=== PATIENT | female | born 1995 | race Two or more races ===

== ENCOUNTER 2017-02-04 06:45 | Emergency (ER) | payer MEDICAID ==
[2017-02-04 06:51] VITALS: TEMP 98.2
--- NOTE | 2017-02-04 07:30 | EDPHY ---
H & P Time Seen by Provider: 02/04/17 06:59 HPI/ROS: This patient describes a one-week history of difficulty swallowing. She explains that she awakens with a choking sensation and has a feeling of upper pharyngeal region swelling but when queried further about this it seems that she is referring to her upper esophagus. She describes a feeling that she tries to swallow and the muscle. Working from an . She has associated anxiety and she has had difficulty sleeping for the past 3 nights. She admits that she typically has some insomnia but it has been worsened due to her current symptoms. She did go to a [place] [facility] 5 days prior to arrival where they were concerned about potential Neurontin allergy. She had been started on Neurontin as a mood stabilizer 1 month ago so the stop the Neurontin and give her Benadryl. She experiences no relief from a intervention. She then saw her primary care physician the following day with a prescribed albuterol inhaler which patient also received no relief from. She describes feeling is like cotton ball. ROS: No fevers. No other constitutional symptoms. HEENT: No nasal congestion. No dysphonia. No sore throat at baseline. She does have some slight discomfort in her upper esophageal/lower pharyngeal region with swallowing at times. Pulmonary: No cough. Cardiovascular: No chest pain or other complaints. GI: She reports significant GERD symptoms described as acid feeling in her esophagus all last month and up to about a week ago. She has not noticed that is much over this past week. No belly pain no other complaints. : No complaints Integumentary: No skin rash 10 point ROS is otherwise negative. Past Medical/Surgical History: Psychiatric history Social History: She denies any recreational drug use. Occasional alcohol. She is accompanied today by her boyfriend. Her boyfriend also provide some history. Smoking Status: Heavy smoker Physical Exam: Physical Exam Vital signs are normal. General: No acute distress HEENT: Nose: Clear bilaterally. No sinus tenderness to percussion. Ears: External canals and tympanic membranes are clear with no erythema or abnormal findings bilaterally. Oropharynx: No erythema or exudates. No dysphonia. No drooling or stridor. Eyes: Pupils equal and react to light. Extraocular motions are intact. Neck: Supple with no meningismus. No lymphadenopathy Lungs: Clear to auscultation bilaterally with no rales, rhonchi or wheeze. No respiratory distress. Cardiac: Regular rate and rhythm with no murmur gallop or rub Skin: No rash or pallor. Neuro: Alert with no focal deficits noted. Initial differential diagnosis: GERD with esophagitis and mild dysphagia attributable to that, anxiety, esophageal stricture, allergic esophagitis, insomnia,lower pharyngeal lesion Constitutional: Initial Vital Signs Temperature (C) 36.8 C 02/04/17 06:48 Heart Rate 70 02/04/17 06:48 Respiratory Rate 16 02/04/17 06:48 Blood Pressure 132/89 H 02/04/17 06:48 O2 Sat (%) 97 02/04/17 06:48 O2 Delivery Mode Room Air Allergies/Adverse Reactions: latex Allergy (Intermediate, Verified 02/04/17 06:47) Itching Penicillins Allergy (Unknown, Verified 02/04/17 06:47) Unknown Home Medications: Medication Instructions Recorded Albuterol 02/04/17 Fluticasone Hfa 220 Mcg [Flovent 2 puffs IH DAILY #1 mdi 02/04/17 220 MCG Hfa MDI (*)] Pantoprazole Sodium [Protonix 40mg 40 mg PO DAILY #30 tab 02/04/17 (*)] Wellbutrin 100mg (*) 02/04/17 Zaleplon [Sonata] 10 mg PO HS PRN #12 capsule 02/04/17 MDM/Departure - [facility] ED Course/Re-evaluation: I discussed insomnia, GERD and dysphagia with this patient and her boyfriend. Will start her on a proton pump inhibitor and sonata as a sleep aid. At the moment there is no evidence of upper airway obstruction, evidence of toxicity or other concerning findings. She will follow up with ENT if she has any ongoing symptoms for further evaluation. - Depart Disposition: Home, Routine, Self-Care Clinical Impression: Dysphagia Qualifiers: Dysphagia type: unspecified Qualified Code(s): R13.10 - Dysphagia, unspecified Insomnia Qualifiers: Insomnia type: unspecified Qualified Code(s): G47.00 - Insomnia, unspecified GERD (gastroesophageal reflux disease) Qualifiers: Esophagitis presence: esophagitis presence not specified Qualified Code(s): K21.9 - Gastro-esophageal reflux disease without esophagitis Condition: Good Instructions: Gastroesophageal Reflux Disease (ED), Insomnia (ED), Dysphagia ( ED) Additional Instructions: Diagnoses: Dysphagia (discomfort with swallowing) 2. GERD 3. Insomnia Plan: Daily exercise for 20-40 minutes Daily relaxation Garden diet before bedtime Prilosec or Protonix 40 mg a day Flovent steroid inhaler Sonata for sleep if needed Follow up with ENT physician listed below for further evaluation if her symptoms are not resolving over the next 5-7 days with treatment plan Prescriptions: Fluticasone Hfa 220 Mcg [Flovent 220 MCG Hfa MDI (*)] 2 puffs IH DAILY #1 mdi Pantoprazole Sodium [Protonix 40mg (*)] 40 mg PO DAILY #30 tab Zaleplon [Sonata] 10 mg PO HS PRN #12 capsule PRN Reason: insomnia Referrals: Nani Vital MD [Medical Doctor] - As per Instructions
[2017-02-04 07:40] VITALS: BP 135/67; PULSE 75; RESP 18; O2SAT 95
== END 2017-02-04 07:41 | disposition home or self-care (01) ==
LOC: CED 06:45
DX: R13.10 Dysphagia, unspecified (principal); K21.9 Gastro-esophageal reflux disease without esophagitis; G47.00 Insomnia, unspecified; F17.200 Nicotine dependence, unspecified, uncomplicated; Z91.040 Latex allergy status

== ENCOUNTER 2017-09-17 17:57 | Emergency (ER) | payer MEDICAID ==
[2017-09-17 18:06] VITALS: RESP 16; TEMP 98.6
--- NOTE | 2017-09-17 18:08 | EDPHY ---
H & P Time Seen by Provider: 09/17/17 18:07 HPI/ROS: Chief complaint. Vomiting/anxiety HPI. 21-year-old female presents emergency department with vomiting and anxiety. This is been present for about 1 week. She has had similar symptoms previously. She was seen by her PCP who prescribed Zofran. She is out of Ativan. She says she is really not nauseated but because of anxiety it makes her vomit when she tries to eat. She has had a hard time keeping any food and fluids down. She has no abdominal pain. She has sense of tension in her chest and sense that she has a hard time breathing especially at night when she is lying down. However no cough. ROS Constitutional. Anxiety Eyes. no problems with vision ENT. no sore throat, no nasal drainage Cardiovascular. no chest pain Respiratory. no shortness of breath, no cough Abdominal. Vomiting . no problems urinating MS. no calf pain/swelling, no neck/back pain, no joint pain Skin. no rash Lymph. no swollen glands Neuro. no headache, no dizziness, no difficulty walking or with speech Past Medical/Surgical History: Past medical history , pyelonephritis, depression, bipolar illness, anxiety Social History: Single, daily smoker, no alcohol Smoking Status: Heavy smoker Physical Exam: General Appearance: Alert pleasant well-developed female mild distress vital signs are stable Eyes: Pupils equal and round no pallor or injection. ENT, Mouth: Mucous membranes are moist. Respiratory: There are no retractions, lungs are clear to auscultation. Cardiovascular: Regular rate and rhythm. Gastrointestinal: Abdomen is soft and nontender, no masses, bowel sounds normal. Neurological: Awake and alert, sensory and motor exams grossly normal. Skin: Warm and dry, no rashes. Musculoskeletal: Neck is supple nontender. Extremities symmetrical, full range of motion. Psychiatric: Patient is oriented X 3, there is no agitation. Constitutional: Initial Vital Signs Temperature (C) 37 C 09/17/17 18:00 Heart Rate 96 09/17/17 18:00 Respiratory Rate 16 09/17/17 18:00 Blood Pressure 118/79 09/17/17 18:00 O2 Sat (%) 98 09/17/17 18:00 O2 Delivery Mode Room Air Allergies/Adverse Reactions: latex Allergy (Intermediate, Verified 09/17/17 18:01) Itching Penicillins Allergy (Unknown, Verified 09/17/17 18:01) Unknown Home Medications: Medication Instructions Recorded Wellbutrin 100mg (*) 02/04/17 ARIPiprazole [Abilify 5 mg (*)] 5 mg PO DAILY 09/17/17 LORazepam [Ativan] 1 mg PO Q6-8PRN PRN #7 tab 09/17/17 Ondansetron Odt [Zofran Odt] 4 mg PO Q4PRN PRN #4 tab 09/17/17 Medical Decision Making Procedures: Patient is given Ativan and Zofran. She declines IV ED Course/Re-evaluation: Re-evaluation 7:00 p.m. patient feels much better. She is drinking fluids. She is now hungry and wants to go eat. The patient and I discussed treatment plan including criteria for return importance of follow-up further evaluation. She expresses understanding and agreement Differential Diagnosis: Sounds like anxiety is precipitating the vomiting. There is no significant evidence for dehydration or electrolyte abnormality. She has been successfully treated with Ativan and Zofran. She has more Zofran at home. She will be given take-home Ativan and follow up with her regular physician for further Ativan - Data Points Medications Given: Discontinued Medications Lorazepam (Ativan) 1 mg PO EDNOW ONE Stop: 09/17/17 18:18 Last Admin: 09/17/17 18:29 Dose: 1 mg Ondansetron HCl (Zofran Odt) 4 mg PO EDNOW ONE Stop: 09/17/17 18:18 Last Admin: 09/17/17 18:29 Dose: 4 mg Departure - Departure Disposition: Home, Routine, Self-Care Clinical Impression: Vomiting Qualifiers: Vomiting type: unspecified Vomiting Intractability: non-intractable Nausea presence: without nausea Qualified Code(s): R11.11 - Vomiting without nausea Condition: Good Instructions: Acute Nausea and Vomiting (ED), Anxiety (ED) Additional Instructions: Ativan as needed for anxiety. Zofran as needed for nausea vomiting. Return for worsening symptoms. Follow up with your regular physician at [facility] for further Ativan. Referrals: [facility],. [Clinic] - As per Instructions Prescriptions: LORazepam [Ativan] 1 mg PO Q6-8PRN PRN #7 tab PRN Reason: Anxiety Ondansetron Odt [Zofran Odt] 4 mg PO Q4PRN PRN #4 tab PRN Reason: Nausea/Vomiting, Use 1st
[2017-09-17] MEDS ORDERED: ONDANSETRON DISINTEGRATING 4 MG TAB PO ONE (18:17)
[2017-09-17] MEDS ORDERED: LORazepam 1 MG TAB PO ONE (18:17)
[2017-09-17] MEDS ORDERED: LORAZEPAM 1 MG PREPACK#4 BTL TAKEHOME ONE (19:01)
[2017-09-17] MEDS ORDERED: ONDANSETRON 4MG PREPACK#2 BTL TAKEHOME ONE (19:08)
[2017-09-17 19:15] VITALS: BP 96/69; PULSE 97; O2SAT 96
== END 2017-09-17 19:15 | disposition home or self-care (01) ==
DX: R11.11 Vomiting without nausea (principal); F17.200 Nicotine dependence, unspecified, uncomplicated; Z91.040 Latex allergy status

== ENCOUNTER 2017-10-28 17:12 | Emergency (ER) | payer MEDICAID ==
--- NOTE | 2017-10-28 17:26 | EDPHY ---
H & P Time Seen by Provider: 10/28/17 17:15 HPI/ROS: 21-year-old female with a history of bipolar disorder requesting bridge for her Seroquel and Abilify until she sees her psychiatrist likely tomorrow. No other complaints, just here for bridge of medication Review of systems As per HPI General no fever no chills no weakness HEENT no eye pain no eye discharge. No eye redness, no sore throat Respiratory no cough, no shortness of breath Cardiac no chest pain, no peripheral edema GI no abdominal pain, no diarrhea, no constipation, no nausea, no vomiting no flank pain, no hematuria, no dysuria Musculoskeletal no myalgias, no joint pain Heme no easy bruising, no easy bleeding Endo no polyuria, no polydipsia Skin no rashes, no pruritus Neuro no syncope, no dizziness, no headaches Psych is no suicidal ideation, no homicidal ideation Social History: Unknown drug and alcohol use. Smokes daily Smoking Status: Heavy smoker Physical Exam: Alert and oriented in no acute distress nontoxic appearance, afebrile Atraumatic normocephalic Neck no JVD Lungs clear to auscultation, no respiratory distress Heart regular rate and rhythm Extremities no cyanosis clubbing edema Constitutional: Initial Vital Signs Temperature (C) 36.9 C 10/28/17 17:25 Heart Rate 104 H 10/28/17 17:25 Respiratory Rate 20 10/28/17 17:25 Blood Pressure 116/81 H 10/28/17 17:25 O2 Sat (%) 95 10/28/17 17:25 O2 Delivery Mode Room Air Allergies/Adverse Reactions: latex Allergy (Intermediate, Verified 10/28/17 17:24) Itching Penicillins Allergy (Unknown, Verified 10/28/17 17:24) Unknown Home Medications: Medication Instructions Recorded Wellbutrin 100mg (*) 02/04/17 ARIPiprazole [Abilify 5 mg (*)] 5 mg PO DAILY 09/17/17 ARIPiprazole [Abilify 5 mg (*)] 5 mg PO DAILY #3 tab 10/28/17 QUEtiapine FUMARATE [Seroquel 50 50 mg PO DAILY #3 tab 10/28/17 mg (*)] Seroquel 10/28/17 Medical Decision Making ED Course/Re-evaluation: Patient here for a medication bridge Given Seroquel 50 mg at bedtime, prescription written for dispense 3. Abilify 5 mg daily, prescription written to dispense 3 Departure - Departure Disposition: Home, Routine, Self-Care Clinical Impression: Medication refill Condition: Good Referrals: NOELLE SALVADOR,. [Primary Care Provider] - As per Instructions Prescriptions: ARIPiprazole [Abilify 5 mg (*)] 5 mg PO DAILY #3 tab QUEtiapine FUMARATE [Seroquel 50 mg (*)] 50 mg PO DAILY #3 tab
[2017-10-28 17:30] VITALS: BP 116/81; PULSE 104; RESP 20; TEMP 98.4; O2SAT 95
== END 2017-10-28 17:30 | disposition home or self-care (01) ==
LOC: CED 17:12
DX: Z76.0 Encounter for issue of repeat prescription (principal); F17.200 Nicotine dependence, unspecified, uncomplicated; Z91.040 Latex allergy status

== ENCOUNTER 2018-01-09 12:15 | Emergency (ER) | payer MEDICAID ==
--- NOTE | 2018-01-09 12:30 | EDPHY ---
H & P Time Seen by Provider: 01/09/18 12:18 HPI/ROS: CHIEF COMPLAINT: Dysuria HISTORY OF PRESENT ILLNESS: 22-year-old female presents with a one-week history of dysuria. Associated with urinary frequency and mild crampy low back pain. No fever, vomiting or flank pain. No vaginal discharge. REVIEW OF SYSTEMS: Complete 10 point ROS negative except at noted in the HPI Past Medical/Surgical History: Depression Social History: single, employed Smoking Status: Heavy smoker Physical Exam: General Appearance: Alert, pleasant Eyes: Pupils equal and round, no conjunctival pallor ENT, Mouth: Mucous membranes moist Neck: Normal inspection Respiratory: Normal respiratory rate Cardiovascular: Regular rate and rhythm Gastrointestinal: Abdomen is soft and nontender Neurological: A&O, nonfocal, normal gait Skin: Warm and dry Extremities: Normal inspection Psychiatric: Mood and affect normal Constitutional: Initial Vital Signs Temperature (C) 36.6 C 01/09/18 12:22 Heart Rate 78 01/09/18 12:22 Respiratory Rate 18 01/09/18 12:22 Blood Pressure 122/62 H 01/09/18 12:22 O2 Sat (%) 96 01/09/18 12:22 O2 Delivery Mode Room Air Allergies/Adverse Reactions: latex Allergy (Intermediate, Verified 10/28/17 17:24) Itching Penicillins Allergy (Unknown, Verified 10/28/17 17:24) Unknown Home Medications: Medication Instructions Recorded Wellbutrin 100mg (*) 02/04/17 ARIPiprazole [Abilify 5 mg (*)] 5 mg PO DAILY 09/17/17 ARIPiprazole [Abilify 5 mg (*)] 5 mg PO DAILY #3 tab 10/28/17 QUEtiapine FUMARATE [Seroquel 50 50 mg PO DAILY #3 tab 10/28/17 mg (*)] Seroquel 10/28/17 Cephalexin [Keflex (*)] 500 mg PO BID #10 cap 01/09/18 Medical Decision Making ED Course/Re-evaluation: UA results discussed with the patient. Not clearly indicative of a urinary tract infection. However her symptoms are typical of prior urinary tract infections. A urine culture was sent and I will treat her with Keflex, pending the urine culture. I will also send a urine for GC/chlamydia. - Data Points Laboratory Results: 01/09/18 01/09/18 13:20 12:30 Urine Color YELLOW Urine Appearance CLEAR Urine pH 6.0 (5.0-7.5) Ur Specific [place] 1.010 (1.002-1.030) Urine Protein NEGATIVE (NEGATIVE) Urine Ketones NEGATIVE (NEGATIVE) Urine Blood TRACE H (NEGATIVE) Urine Nitrate NEGATIVE (NEGATIVE) Urine Bilirubin NEGATIVE (NEGATIVE) Urine Urobilinogen 0.2 EU EU (0.2-1.0) Ur Leukocyte Esterase NEGATIVE (NEGATIVE) Urine RBC 3-5 /hpf H /hpf (0-3) Urine WBC 0-1 /hpf /hpf (0-3) Ur Epithelial Cells 1+ /lpf /lpf (NONE-1+) Urine Bacteria 3+ /hpf H /hpf (NONE SEEN) Urine Glucose NEGATIVE (NEGATIVE) C.trachomatis RNA (TMA) Pending N.gonorrhoeae RNA (TMA) Pending Medications Given: Discontinued Medications Cephalexin HCl (Keflex) 500 mg PO EDNOW ONE PRN Reason: Protocol Stop: 01/09/18 13:11 Last Admin: 01/09/18 13:15 Dose: 500 mg Departure - Departure Disposition: Home, Routine, Self-Care Clinical Impression: Urinary tract infection Qualifiers: Urinary tract infection type: acute cystitis Hematuria presence: with hematuria Qualified Code(s): N30.01 - Acute cystitis with hematuria Condition: Good Instructions: Urinary Tract Infection in Women (ED) Referrals: [facility] HOOK [Other] - As per Instructions Stand Alone Forms: Work Excuse Prescriptions: Cephalexin [Keflex (*)] 500 mg PO BID #10 cap
[2018-01-09] MEDS ORDERED: CEPHALEXIN 500 MG CAP PO ONE (13:10)
[2018-01-09 13:24] VITALS: BP 118/62
[2018-01-10 13:08] LABS: GC AMPLIFICATION GENPROBE NEGATIVE (NEGATIVE)
== END 2018-01-09 13:22 | disposition home or self-care (01) ==
LOC: CED 12:15
DX: N30.01 Acute cystitis with hematuria (principal); F17.200 Nicotine dependence, unspecified, uncomplicated; B96.20 Unspecified Escherichia coli [E. coli] as the cause of diseases classified elsewhere; Z91.040 Latex allergy status
CPT/HCPCS: 81003-PO; 81015-PO